=== PATIENT | female | born 2000 | race African-American/Black ===

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

== ENCOUNTER 2018-02-06 12:58 | Emergency (ER) | payer BC ==
[~2018-02-06] VITALS: Ht 160 cm; Wt 54.4 kg
[2018-02-06 13:20] VITALS: BP 133/82
[2018-02-06] MEDS ORDERED: IBUPROFEN 600 MG TABLET. PO ONE (14:00)
--- NOTE | 2018-02-06 14:17 | PHYS DOC ---
Past Medical History Past Medical History: No Pertinent History Past Surgical History: No Surgical History Alcohol Use: None Drug Use: None Adult General Chief Complaint Chief Complaint: SHOULDER INJURY HPI HPI Patient is a 18 year old female who presents with stating that she was holding a heavy TV in her hands and her boyfriend was trying to help and she fell to the right side into her shoulder and clavicle area at 1300 today. Patient states that the pain is at her right clavicle that radiates into the right shoulder. Patient states that her hand is feeling like it is going to sleep. Review of Systems Review of Systems Constitutional: Denies fever or chills [] Eyes: Denies change in visual acuity, redness, or eye pain [] HENT: Denies nasal congestion or sore throat [] Respiratory: Denies cough or shortness of breath [] Cardiovascular: No additional information not addressed in HPI [] GI: Denies abdominal pain, nausea, vomiting, bloody stools or diarrhea [] : Denies dysuria or hematuria [] Musculoskeletal: Denies back pain. Right shoulder and clavicle joint pain [] Integument: Denies rash or skin lesions [] Neurologic: Denies headache, focal weakness or sensory changes [] Endocrine: Denies polyuria or polydipsia [] All other systems were reviewed and found to be within normal limits, except as documented in this note. Current Medications Current Medications Current Medications Medications (Trade) Dose Ordered Sig/[facility] Start Time Stop Time Status Last Admin Dose Admin Ibuprofen (Motrin) 600 mg 1X ONCE 02/06/18 14:00 02/06/18 14:01 DC Allergies Allergies Allergies Coded Allergies Type Severity Reaction Last Updated Verified No Known Drug Allergies 12/28/13 No Physical Exam Physical Exam Constitutional: Well developed, well nourished, no acute distress, non-toxic appearance. [] HENT: Normocephalic, atraumatic, bilateral external ears normal, oropharynx moist, no oral exudates, nose normal. [] Eyes: PERRLA, EOMI, conjunctiva normal, no discharge. [] Neck: Normal range of motion, no tenderness, supple, no stridor. [] Cardiovascular:Heart rate regular rhythm, no murmur [] Lungs & Thorax: Bilateral breath sounds clear to auscultation [] Abdomen: Bowel sounds normal, soft, no tenderness, no masses, no pulsatile masses. [] Skin: Warm, dry, no erythema, no rash. [] Back: No tenderness, no CVA tenderness. [] Extremities: Right clavicle tenderness, no cyanosis, no clubbing, ROM intact in right shoulder but painful, no edema. [] Neurologic: Alert and oriented X 3, normal motor function, normal sensory function, no focal deficits noted. [] Psychologic: Affect normal, judgement normal, mood normal. [] Current Patient Data Vital Signs Vital Signs Date Time Temp Pulse Resp B/P (MAP) Pulse Ox O2 Delivery O2 Flow Rate FiO2 02/06/18 13:20 98.4 92 16 133/82 (99) 99 Room Air 98.4 EKG EKG [] Radiology/Procedures Radiology/Procedures [] Course & Med Decision Making Course & Med Decision Making Patient is a 18 year old female who presents with stating that she was holding a heavy TV in her hands and her boyfriend was trying to help and she fell to the right side into her shoulder and clavicle area at 1300 today. Patient states that the pain is at her right clavicle that radiates into the right shoulder. Patient states that her hand is feeling like it is going to sleep. Alert and oriented. There is no deformity to her clavicle or her right shoulder. There is some tenderness to palpation to the right clavicle area but not to shoulder. Patient can move her arm at the right shoulder joint but it is painful. She rates her pain an 8 out of 10. She has a right radial pulses present and strong. She has no known drug allergies and denies taking any medications daily, past medical history, surgeries. 1415: Galina s not in her room and did not tell staff she was leaving. Patient did not get her x-ray done before she eloped. Dragon Disclaimer Dragon Disclaimer This electronic medical record was generated, in whole or in part, using a voice recognition dictation system. 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
== END 2018-02-06 14:15 | disposition left against medical advice (07) ==
LOC: ER 12:58
DX: M25.511 Pain in right shoulder (principal)
CPT/HCPCS: 99281

== ENCOUNTER 2018-02-06 20:29 | Emergency (ER) | payer BC ==
[~2018-02-06] VITALS: Ht 160 cm; Wt 54.4 kg
[2018-02-06 20:36] VITALS: BP 117/58
[2018-02-06] MEDS ORDERED: IBUPROFEN 600 MG TABLET. PO ONE (21:30)
--- NOTE | 2018-02-06 21:52 | PHYS DOC ---
Past Medical History Past Medical History: No Pertinent History Past Surgical History: No Surgical History Alcohol Use: None Drug Use: None Adult General Chief Complaint Chief Complaint: SHOULDER INJURY HPI HPI 18-year-old female who was in the ER earlier today returns as she had not waited to have x-rays. Patient reports she was unable to weight earlier to have imaging done however with ongoing pain decided to come back for further eval. Pt reports earlier today she was trying to lift a TV and she fell causing injury to her rt shoulder. She denies numbness/tingling, bruising, abrasions, or swelling. She reports she has been able to use rt arm but has increased pain with any lifting/movements. She denies any OTC meds. She reports she is rt hand dominant. She denies any other injury during fall. Review of Systems Review of Systems Constitutional: Denies fatigue Respiratory: Denies shortness of breath [] Cardiovascular: Denies CP GI: Denies abdominal pain, nausea, vomiting Musculoskeletal: Denies back/neck pain. Reports rt shoulder pain Integument: Denies bruising/swelling Neurologic: Denies headache, focal weakness or sensory changes [] All other systems were reviewed and found to be within normal limits, except as documented in this note. Current Medications Current Medications Current Medications Medications (Trade) Dose Ordered Sig/Juan Carlos Start Time Stop Time Status Last Admin Dose Admin Ibuprofen (Motrin) 600 mg 1X ONCE 02/06/18 21:30 02/06/18 21:31 DC 02/06/18 21:17 600 MG Allergies Allergies Allergies Coded Allergies Type Severity Reaction Last Updated Verified No Known Drug Allergies 12/28/13 No Physical Exam Physical Exam Constitutional: Well developed, well nourished, no acute distress, non-toxic appearance. [] HENT: Normocephalic, atraumatic, oropharynx moist, nose normal. [] Eyes: Pupils equal, conjunctiva normal, no discharge. [] Neck: Normal range of motion, no tenderness midline cervical spine, supple Cardiovascular:Heart rate regular, no murmur [] Lungs & Thorax: Bilateral breath sounds clear to auscultation. Resp. equal/ nonlabored. No chest wall tenderness/palp deformity Abdomen: Bowel sounds normal, soft, no tenderness, no masses, no pulsatile masses. [] Skin: Warm, dry, no erythema, no rash. [] Back: No tenderness, no CVA tenderness. [] Extremities: Tender to palp. rt anterior shoulder- no deformity/discoloration- decreased ROM pt has difficulty with abduction, no cyanosis, no clubbing, ROM intact lt upper extrem., no edema. Radial equal bilat. 2+ Neurologic: Alert and oriented X 3, normal motor function, normal sensory function, no focal deficits noted. [] Psychologic: Affect normal, judgement normal, mood normal. [] Current Patient Data Vital Signs Vital Signs Date Time Temp Pulse Resp B/P (MAP) Pulse Ox O2 Delivery O2 Flow Rate FiO2 02/06/18 20:36 98.0 106 16 117/58 (77) 99 Room Air 98.0 EKG EKG [] Radiology/Procedures Radiology/Procedures PROCEDURE: SHOULDER 2+V RIGHT EXAM: Right shoulder, 3 views. HISTORY: Fall. COMPARISON: None. FINDINGS: 3 views of the right shoulder obtained. There is slight superior positioning of the distal clavicle relative to the acromion. There is no fracture. IMPRESSION: Slight superior positioning of the distal clavicle relative to the acromion, without clear joint space widening. This may be projectional or developmental rather than due to subluxation. Correlate for pain in this location. Electronically signed by: Clarissa Go MD (02/06/2018 9:54 PM) [facility] DICTATED and SIGNED BY: CLARISSA GO MD DATE: 02/06/182152 Course & Med Decision Making Course & Med Decision Making Pertinent Imaging studies reviewed. (See chart for details) Discussed imaging results with pt and plans for sling to rt arm- no obvious displaced fx/dislocation reported. Discussed f/u with orthopedic doctor for further care/eval. Education provided on s&s to return to ER for, OTC meds for pain PRN, and ice/heat pack application. Discharge instructions were discussed. Pt remains neuro/vascular intact in rt upper extrem. with brisk cap. refill and 2+ radial pulse. Will provide orthopedic doctor info on discharge paperwork. Dragon Disclaimer Dragon Disclaimer This electronic medical record was generated, in whole or in part, using a voice recognition dictation system. Departure Departure Impression: Primary Impression: Shoulder pain, right Disposition: 01 HOME, SELF-CARE Condition: STABLE Referrals: ANUSHKA ROSS (PCP) ROHITH VIERA MD orthopedic doctor for follow-up Patient Instructions: Arm Sling Use-Brief, Shoulder Pain Additional Instructions: Wear sling to support right arm. Tylenol and/or ibuprofen as needed for pain as directed on container. Ice pack to shoulder every 3-4 hours for 20-30 minutes at a time. YAS STEINER APRN Feb 06, 2018 21:52
--- NOTE | 2018-02-06 21:58 | RAD ---
EXAM: Right shoulder, 3 views. HISTORY: Fall. COMPARISON: None. FINDINGS: 3 views of the right shoulder obtained. There is slight superior positioning of the distal clavicle relative to the acromion. There is no fracture. IMPRESSION: Slight superior positioning of the distal clavicle relative to the acromion, without clear joint space widening. This may be projectional or developmental rather than due to subluxation. Correlate for pain in this location. Electronically signed by: Clarissa Tovar MD (02/06/2018 9:54 PM) [facility]
== END 2018-02-06 22:53 | disposition home or self-care (01) ==
LOC: ER 20:29
DX: M25.511 Pain in right shoulder (principal)
CPT/HCPCS: 73030; 99284

== ENCOUNTER 2018-09-12 12:00 | Emergency (ER) | payer OTHER, BC ==
[~2018-09-12] VITALS: Ht 160 cm; Wt 59.0 kg
[2018-09-12] MEDS ORDERED: ONDANSETRON PF 4 MG/2 ML VIAL. IV ONE (12:45)
[2018-09-12] MEDS ORDERED: IV NORMAL SALINE 1000ML BAG 1,000 ML IV ONE (12:45)
[2018-09-12 12:48] LABS: BASO % 1 % (0-3); EOS # 0.1 x10^3/uL (0.0-0.7); EOS % 1 % (0-3); HEMOGLOBIN 12.9 g/dL (12.0-15.5); LYMPH # 1.3 x10^3/uL (1.0-4.8); LYMPH % 27 % (24-48); MEAN CORPUSCULAR HEMOGLOBIN 28 pg (25-35); MEAN CORPUSCULAR HGB CONC 33 g/dL (31-37); MEAN CORPUSCULAR VOLUME 85 fL (79-100); MONO # 0.3 x10^3/uL (0.0-1.1); MONO % 5 % (0-9); NEUT # 3.2 x10^3uL (1.8-7.7); NEUT % 66 % (31-73); PLATELET COUNT 230 x10^3/uL (140-400); RED BLOOD COUNT 4.59 x10^6/uL (3.50-5.40); RED CELL DISTRIBUTION WIDTH 13.6 % (11.5-14.5); WHITE BLOOD COUNT 4.9 x10^3/uL (4.0-11.0)
[2018-09-12 12:49] LABS: BILIRUBIN,URINE NEGATIVE (NEG); CLARITY,URINE CLEAR; COLOR,URINE YELLOW; NITRITE,URINE NEGATIVE (NEG); PROTEIN,URINE NEGATIVE (NEG-TRACE); UROBILINOGEN,URINE 0.2 mg/dL (0.2 mg/dL)
[2018-09-12 12:57] LABS: BACTERIA,URINE MOD /HPF (0-FEW); RBC,URINE 0 /HPF (0-2); SQUAMOUS EPITHELIAL CELL,UR FEW /LPF; WBC,URINE OCC /HPF (0-4)
[2018-09-12 13:01] LABS: CALCIUM 9.1 mg/dL (8.5-10.1); CREATININE 0.9 mg/dL (0.6-1.0); GFR 96.6; POTASSIUM 3.8 mmol/L (3.5-5.1)
[2018-09-12 13:11] LABS: ALBUMIN 4.1 g/dL (3.4-5.0); ALBUMIN/GLOBULIN RATIO 1.2 (1.0-1.7); TOTAL BILIRUBIN 0.2 mg/dL (0.2-1.0); TOTAL PROTEIN 7.5 g/dL (6.4-8.2)
--- NOTE | 2018-09-12 13:19 | PHYS DOC ---
Past Medical History Past Medical History: No Pertinent History Past Surgical History: No Surgical History Alcohol Use: None Drug Use: None Adult General Chief Complaint Chief Complaint: NAUSEA/VOMITING/DIARRHA HPI HPI Patient is a 18 year old female who presents with nausea and vomiting has been ongoing since 0800 in the morning. States she vomited one time, and has had a bowel movement denies diarrhea. The patient rates her pain 10 out of 10 and cramping. Patient started her period yesterday. Review of Systems Review of Systems Constitutional: Denies fever or chills [] Eyes: Denies change in visual acuity, redness, or eye pain [] HENT: Denies nasal congestion or sore throat [] Respiratory: Denies cough or shortness of breath [] Cardiovascular: No additional information not addressed in HPI [] GI: Reports RUQ abdominal pain, nausea, and vomiting Denies bloody stools or diarrhea [] : Denies dysuria or hematuria [] Musculoskeletal: Denies back pain or joint pain [] Integument: Denies rash or skin lesions [] Neurologic: Denies headache, focal weakness or sensory changes [] Endocrine: Denies polyuria or polydipsia [] Complete systems were reviewed and found to be within normal limits, except as documented in this note. Current Medications Current Medications Current Medications Medications (Trade) Dose Ordered Sig/Juan Carlos Start Time Stop Time Status Last Admin Dose Admin Ceftriaxone Sodium (Rocephin) 1 gm 1X ONCE 09/12/18 13:30 09/12/18 13:31 09/12/18 13:43 1 GM Morphine Sulfate (Morphine Sulfate) 2 mg 1X ONCE 09/12/18 13:30 09/12/18 13:31 09/12/18 13:43 2 MG Ondansetron HCl (Zofran) 4 mg 1X ONCE 09/12/18 12:45 09/12/18 12:46 DC 09/12/18 12:48 4 MG Sodium Chloride 1,000 ml @ 1,000 mls/hr 1X ONCE 09/12/18 12:45 09/12/18 13:44 09/12/18 12:48 1,000 MLS/HR Allergies Allergies Allergies Coded Allergies Type Severity Reaction Last Updated Verified No Known Drug Allergies 12/28/13 No Physical Exam Physical Exam Constitutional: Well developed, well nourished, no acute distress, non-toxic appearance. [] HENT: Normocephalic, atraumatic, bilateral external ears normal, oropharynx moist, no oral exudates, nose normal. [] Eyes: PERRLA, EOMI, conjunctiva normal, no discharge. [] Neck: Normal range of motion, no tenderness, supple, no stridor. [] Cardiovascular:Heart rate regular rhythm, no murmur [] Lungs & Thorax: Bilateral breath sounds clear to auscultation [] Abdomen: Bowel sounds normal, soft, tenderness to the RUQ, no masses, no pulsatile masses. [] Skin: Warm, dry, no erythema, no rash. [] Back: No tenderness, no CVA tenderness. [] Extremities: No tenderness, no cyanosis, no clubbing, ROM intact, no edema. [] Neurologic: Alert and oriented X 3, normal motor function, normal sensory function, no focal deficits noted. [] Psychologic: Affect normal, judgement normal, mood normal. [] Current Patient Data Vital Signs Vital Signs Date Time Temp Pulse Resp B/P (MAP) Pulse Ox O2 Delivery O2 Flow Rate FiO2 09/12/18 12:00 97.7 70 14 121/87 (98) 100 Room Air 97.7 Lab Values Laboratory Tests Test 09/12/18 12:18 09/12/18 12:30 09/12/18 12:39 Urine Collection Type Unknown Urine Color Yellow Urine Clarity Clear Urine pH 5.0 Urine Specific [place] 1.020 Urine Protein Negative mg/dL (NEG-TRACE) Urine Glucose (UA) Negative mg/dL (NEG) Urine Ketones (Stick) Negative mg/dL (NEG) Urine Blood Moderate (NEG) Urine Nitrite Negative (NEG) Urine Bilirubin Negative (NEG) Urine Urobilinogen Dipstick 0.2 mg/dL (0.2 mg/dL) Urine Leukocyte Esterase Trace (NEG) Urine RBC 0 /HPF (0-2) Urine WBC Occ /HPF (0-4) Urine Squamous Epithelial Cells Few /LPF Urine Bacteria Mod /HPF (0-FEW) Urine Mucus Mod /LPF White Blood Count 4.9 x10^3/uL (4.0-11.0) Red Blood Count 4.59 x10^6/uL (3.50-5.40) Hemoglobin 12.9 g/dL (12.0-15.5) Hematocrit 39.0 % (36.0-47.0) Mean Corpuscular Volume 85 fL (79-100) Mean Corpuscular Hemoglobin 28 pg (25-35) Mean Corpuscular Hemoglobin Concent 33 g/dL (31-37) Red Cell Distribution Width 13.6 % (11.5-14.5) Platelet Count 230 x10^3/uL (140-400) Neutrophils (%) (Auto) 66 % (31-73) Lymphocytes (%) (Auto) 27 % (24-48) Monocytes (%) (Auto) 5 % (0-9) Eosinophils (%) (Auto) 1 % (0-3) Basophils (%) (Auto) 1 % (0-3) Neutrophils # (Auto) 3.2 x10^3uL (1.8-7.7) Lymphocytes # (Auto) 1.3 x10^3/uL (1.0-4.8) Monocytes # (Auto) 0.3 x10^3/uL (0.0-1.1) Eosinophils # (Auto) 0.1 x10^3/uL (0.0-0.7) Basophils # (Auto) 0.0 x10^3/uL (0.0-0.2) Sodium Level 141 mmol/L (136-145) Potassium Level 3.8 mmol/L (3.5-5.1) Chloride Level 105 mmol/L (98-107) Carbon Dioxide Level 27 mmol/L (21-32) Anion Gap 9 (6-14) Blood Urea Nitrogen 11 mg/dL (7-20) Creatinine 0.9 mg/dL (0.6-1.0) Estimated GFR (Cockcroft-Gault) 96.6 BUN/Creatinine Ratio 12 (6-20) Glucose Level 93 mg/dL (70-99) Calcium Level 9.1 mg/dL (8.5-10.1) Total Bilirubin 0.2 mg/dL (0.2-1.0) Aspartate Amino Transferase (AST) 21 U/L (15-37) Alanine Aminotransferase (ALT) 19 U/L (14-59) Alkaline Phosphatase 65 U/L (46-116) Total Protein 7.5 g/dL (6.4-8.2) Albumin 4.1 g/dL (3.4-5.0) Albumin/Globulin Ratio 1.2 (1.0-1.7) Lipase 79 U/L (73-393) POC Urine HCG, Qualitative Hcg negative (Negative) Laboratory Tests 09/12/18 12:30 Laboratory Tests 09/12/18 12:30 EKG EKG [] Radiology/Procedures Radiology/Procedures [] PATIENT: SUZY DOUGLASS ACCOUNT: [id number] : 2000 LOCATION: ER AGE: 18 SEX: F EXAM STATUS: PRE ER ORD. PHYSICIAN: LEONARDO MARTINES APRN REASON: ruq pain PROCEDURE: ABDOMEN LTD Limited abdomen ultrasound HISTORY: Right upper quadrant pain. FINDINGS: The pancreas appears unremarkable. Liver is nonenlarged. No significant gallstones or gallbladder wall thickening. Inferior vena cava appears unremarkable. No significant biliary ductal dilatation. Right kidney measures 9.5 cm longitudinal without hydronephrosis. IMPRESSION: No significant sonographic abnormality. Electronically signed by: Leonardo Costa MD (09/12/2018 1:24 PM) [facility] Course & Med Decision Making Course & Med Decision Making Pertinent Labs and Imaging studies reviewed. (See chart for details) Will order RUQ ultrasound, labs, and urine. Labs are unremarkable, with exception of UTI. Will order Rocephin Imaging is unremarkable Dragon Disclaimer Dragon Disclaimer This electronic medical record was generated, in whole or in part, using a voice recognition dictation system. Departure Departure Impression: Primary Impression: Urinary tract infection Disposition: 01 HOME, SELF-CARE Condition: STABLE Referrals: ANUSHKA ROSS (PCP) Patient Instructions: Urinary Tract Infection Additional Instructions: Take antibiotics and nausea medication as directed. Come back to ER as needed. Scripts Cephalexin (KEFLEX) 500 Mg Capsule 1 CAP PO BID for 7 Days, #14 CAP Prov: LEONARDO MARTINES APRN 09/12/18 Ondansetron (ONDANSETRON ODT) 4 Mg Tab.rapdis 1 TAB PO PRN Q6-8HRS, #16 TAB Prov: LEONARDO MARTINES APRN 09/12/18 Problem Qualifiers Primary Impression: Urinary tract infection Urinary tract infection type: acute cystitis Hematuria presence: without hematuria Qualified Codes: N30.00 - Acute cystitis without hematuria LEONARDO MARTINES APRN Sep 12, 2018 13:19
--- NOTE | 2018-09-12 13:27 | RAD ---
Limited abdomen ultrasound HISTORY: Right upper quadrant pain. FINDINGS: The pancreas appears unremarkable. Liver is nonenlarged. No significant gallstones or gallbladder wall thickening. Inferior vena cava appears unremarkable. No significant biliary ductal dilatation. Right kidney measures 9.5 cm longitudinal without hydronephrosis. IMPRESSION: No significant sonographic abnormality. Electronically signed by: Leonardo Costa MD (09/12/2018 1:24 PM) [facility]
[2018-09-12] MEDS ORDERED: MORPHINE SULFATE 2 MG/ML VIAL. IV ONE (13:30)
[2018-09-12] MEDS ORDERED: cefTRIAXone IV Push 1 GM VIAL. IVP ONE (13:30)
[2018-09-12] MEDS ORDERED: CEPH-264 PO (13:51)
[2018-09-12] MEDS ORDERED: ONDA4TAB12 PO (13:51)
[2018-09-12 14:00] VITALS: BP 128/67
[2018-09-12] MEDS ORDERED: PROCHLORPERAZINE 10 MG/2 ML VIAL. IV ONE (14:00)
== END 2018-09-12 14:12 | disposition home or self-care (01) ==
LOC: ER 12:00
DX: N30.00 Acute cystitis without hematuria (principal); R11.2 Nausea with vomiting, unspecified; R10.11 Right upper quadrant pain
CPT/HCPCS: 36415; 76705; 80053; 81001; 81025; 83690; 85025; 96361; 96374; 96375; 99285; J0696; J0780; J2270; J2405; J7030

== ENCOUNTER 2019-08-29 14:30 | Emergency (ER) | payer BC, OTHER ==
[~2019-08-29] VITALS: Ht 160 cm; Wt 59.0 kg
[~2019-08-29 14:30] MED LIST changes: +CEPH-264 PO; +ONDA4TAB12 PO
[2019-08-29 14:58] VITALS: BP 102/56
[2019-08-29] MEDS ORDERED: metroNIDAZOLE 500 MG TABLET PO ONE (15:00)
[2019-08-29] MEDS ORDERED: cefTRIAXone IM 250 MG VIAL IM ONE (15:00)
[2019-08-29] MEDS ORDERED: AZITHROMYCIN 250 MG TABLET. PO ONE (15:00)
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
== END 2019-08-29 15:30 | disposition home or self-care (01) ==
LOC: ER 14:30
DX: Z20.2 Contact with and (suspected) exposure to infections with a predominantly sexual mode of transmission (principal); N89.8 Other specified noninflammatory disorders of vagina
CPT/HCPCS: 81025; 96372; 99283; J0696

== ENCOUNTER 2020-05-05 10:49 | Emergency (ER) | payer BC, OTHER ==
[~2020-05-05] VITALS: Ht 160 cm; Wt 58.1 kg
[2020-05-05 11:35] LABS: BACTERIA,URINE FEW /HPF (0-FEW); BILIRUBIN,URINE NEGATIVE (NEG); CLARITY,URINE CLEAR; COLOR,URINE YELLOW; NITRITE,URINE NEGATIVE (NEG); PH,URINE 5.5 (<5.0-8.0); PROTEIN,URINE NEGATIVE (NEG-TRACE); RBC,URINE 0 /HPF (0-2); UROBILINOGEN,URINE 0.2 mg/dL (0.2 mg/dL)
[2020-05-05] MEDS ORDERED: METR500T PO (12:11)
--- NOTE | 2020-05-05 12:11 | PHYS DOC ---
Past Medical History Past Medical History: No Pertinent History Past Surgical History: No Surgical History Smoking Status: Never Smoker Alcohol Use: None Drug Use: None General Adult EDM: Chief Complaint: VAGINAL PROBLEM HPI: HPI: Patient is a 20 year old female who presents to the ED today complaining of va ginal discharge foul-smelling, symptoms for 3 days. Also complaining of slight dysuria. Denies any concerns for STDs. Denies any chance she is . Review of Systems: Review of Systems: Constitutional: Denies fever or chills. [] Eyes: Denies change in visual acuity. [] HENT: Denies nasal congestion or sore throat. [] Respiratory: Denies cough or shortness of breath. [] Cardiovascular: Denies chest pain or edema. [] GI: Denies abdominal pain, nausea, vomiting, bloody stools or diarrhea. [] : Reports foul-smelling discharge and dysuria Musculoskeletal: Denies back pain or joint pain. [] Integument: Denies rash. [] Neurologic: Denies headache, focal weakness or sensory changes. [] Psychiatric: Denies depression or anxiety. [] Heart Score: Risk Factors: Risk Factors: DM, Current or recent (<one month) smoker, HTN, HLP, family history of CAD, obesity. Risk Scores: Score 0 - 3: 2.5% MACE over next 6 weeks - Discharge Home Score 4 - 6: 20.3% MACE over next 6 weeks - Admit for Clinical Observation Score 7 - 10: 72.7% MACE over next 6 weeks - Early Invasive Strategies Allergies: Allergies: Allergies Coded Allergies Type Severity Reaction Last Updated Verified No Known Drug Allergies 12/28/13 No Physical Exam: PE: Constitutional: Well developed, well nourished, no acute distress, non-toxic appearance. [] HENT: Normocephalic, atraumatic, bilateral external ears normal, oropharynx moist, no oral exudates, nose normal. [] Eyes: PERRLA, EOMI, conjunctiva normal, no discharge. [] Neck: Normal range of motion, no tenderness, supple, no stridor. [] Cardiovascular:Heart rate regular rhythm, no murmur [] Lungs & Thorax: Bilateral breath sounds clear to auscultation [] Abdomen: Bowel sounds normal, soft, no tenderness, no masses, no pulsatile masses. [] Pelvic exam External pelvic appears normal, cervix visualized, closed, no CMT, no adnexal tenderness Skin: Warm, dry, no erythema, no rash. [] Back: No tenderness, no CVA tenderness. [] Extremities: No tenderness, no cyanosis, no clubbing, ROM intact, no edema. [] Neurologic: Alert and oriented X 3, normal motor function, normal sensory function, no focal deficits noted. [] Psychologic: Affect normal, judgement normal, mood normal. [] Current Patient Data: Labs: Laboratory Tests Test 05/05/20 10:52 05/05/20 11:01 Urine Collection Type Void Urine Color Yellow Urine Clarity Clear Urine pH 5.5 (<5.0-8.0) Urine Specific [place] 1.025 (1.000-1.030) Urine Protein Negative mg/dL (NEG-TRACE) Urine Glucose (UA) Negative mg/dL (NEG) Urine Ketones (Stick) Negative mg/dL (NEG) Urine Blood Negative (NEG) Urine Nitrite Negative (NEG) Urine Bilirubin Negative (NEG) Urine Urobilinogen Dipstick 0.2 mg/dL (0.2 mg/dL) Urine Leukocyte Esterase Trace (NEG) Urine RBC 0 /HPF (0-2) Urine WBC 1-4 /HPF (0-4) Urine Squamous Epithelial Cells Mod /LPF Urine Bacteria Few /HPF (0-FEW) Urine Mucus Slight /LPF POC Urine HCG, Qualitative Hcg negative (Negative) Microbiology 05/05/20 Wet Prep - Final, Complete Vital Signs: Vital Signs Date Time Temp Pulse Resp B/P (MAP) Pulse Ox O2 Delivery O2 Flow Rate FiO2 05/05/20 11:11 97.8 78 16 133/73 (93) 100 Room Air 97.8 EKG: EKG: [] Radiology/Procedures: Radiology/Procedures: [] Course & Med Decision Making: Course & Med Decision Making Pertinent Labs and Imaging studies reviewed. (See chart for details) This is a 20-year-old female patient presenting to the ED today with vaginal discharge for 3 days and slight dysuria. Negative urine hCG, UA negative for infection. Positive for BV. Discharged on Flagyl. Bhanu Disclaimer: Bhanu Disclaimer: This electronic medical record was generated, in whole or in part, using a voice recognition dictation system. Departure Departure Impression: Primary Impression: Bacterial vaginosis Disposition: HOME SELF CARE/HOMELESS Condition: STABLE Referrals: ANUSHKA ROSS (PCP) Follow-up in 1 to 2 weeks Patient Instructions: Bacterial Vaginosis, [id number] Additional Instructions: You have bacterial vaginosis, take the prescribed antibiotics until completed. Follow-up with your own primary care doctor or [facility] in 1 to 2 weeks Scripts Metronidazole (FLAGYL) 500 Mg Tablet 1 TAB PO BID, #14 TAB Prov: ROBINA BROOKS APRN 05/05/20 ROBINA BROOKS APRN May 05, 2020 12:11
[2020-05-05 12:15] VITALS: BP 122/65
[2020-05-06 19:14] LABS: GC PROBE Negative (Negative)
== END 2020-05-05 12:15 | disposition home or self-care (01) ==
LOC: ER 10:49
DX: N76.0 Acute vaginitis (principal); R30.0 Dysuria
CPT/HCPCS: 81001; 81025; 87086; 87491; 87591; 99284; Q0111

== ENCOUNTER 2021-07-13 13:19 | Emergency (ER) | payer BC ==
[~2021-07-13] VITALS: Ht 160 cm; Wt 53.6 kg
[2021-07-13 14:10] VITALS: BP 121/67
--- NOTE | 2021-07-13 15:05 | RAD ---
Right shoulder 3 views. HISTORY: Pain 3 views were taken of the right shoulder. Comparison was made with a study from February 2018. There is not evidence of a fracture or dislocation or acute osseous abnormality. Been no change in the appe arance compared to the old study. IMPRESSION: 1. No acute osseous abnormality noted in the right shoulder. Electronically signed by: Matty Arias MD (07/13/2021 3:02 PM) [facility]
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
== END 2021-07-13 15:51 | disposition home or self-care (01) ==
LOC: ER 13:19
DX: G89.11 Acute pain due to trauma (principal); M25.511 Pain in right shoulder; Y08.89XA Assault by other specified means, initial encounter; Y93.89 Activity, other specified; Y92.89 Other specified places as the place of occurrence of the external cause; Y99.8 Other external cause status
CPT/HCPCS: 73030; 99283